=== PATIENT | female | born 1965 | race Caucasian/White ===

== ENCOUNTER 2017-01-27 19:30 | Emergency (ER) | payer OTHER ==
[~2017-01-27] VITALS: Ht 167.6 cm; Wt 86.0 kg
[2017-01-27 19:32] VITALS: BP 158/92; PULSE 69; RESP 16; TEMP 98.3; O2SAT 100
--- NOTE | 2017-01-27 19:57 | PD ---
HPI Chief Complaint: facial droop Time Seen by Provider: 19:42 Travel History International Travel<30 days: No Contact w/Intl Traveler<30days: No History of Present Illness HPI 51 y/o female presents with developing facial tingling and drooping to her mouth since 10 AM this morning. She went to an urgent care and they sent her here for further evaluation. She denies any symptoms in her arms or legs. She states she's also having difficulty closing her right eye. Entire right side of her face is the area that is affected. She denies prior history of this. Quality is tingly. PFSH Past Medical History Thyroid Disease: Yes Past Surgical History Hysterectomy: Yes (still has her ovaries) Social History Tobacco Use: No Allergies-Medications (Allergen,Severity, Reaction): Coded Allergies: No Known Allergies (Unverified , 01/27/17) Reported Meds & Prescriptions Reported Meds & Active Scripts Active Valtrex (Valacyclovir HCl) 1 Gm Tab 1,000 Mg PO TID 7 Days Prednisone 50 Mg Tab 50 Mg PO DAILY 7 Days Review of Systems Except as stated in HPI: all other systems reviewed are Neg Physical Exam Narrative GENERAL: Well-nourished, well-developed patient. SKIN: Warm and dry. HEAD: atraumatic. EYES: No injection or drainage. ENT: No nasal drainage noted. bilateral TM clear NECK: Supple, trachea midline. CARDIOVASCULAR: Regular rate and rhythm RESPIRATORY: Breath sounds equal bilaterally. No accessory muscle use. GASTROINTESTINAL: Abdomen soft, non-tender, nondistended. EXTREMITIES: No edema. NEUROLOGICAL: Awake and alert. Motor and sensory grossly within normal limits to extremities. No pronator drift, equal grasp bilaterally, 5 out of 5 in all 4 extremities, patient with right sided facial droop and unable to fully close her right eye or wrinkle forehead. Symptoms are isolated to entire right side of the face Data Data Last Documented VS Vital Signs Date Time Temp Pulse Resp B/P Pulse Ox O2 Delivery O2 Flow Rate FiO2 01/27/17 20:15 78 16 134/72 01/27/17 20:12 98.[address] Brain W/O Iv Contrast(Rout) (01/27/17 ) MDM Medical Decision Making Medical Screen Exam Complete: Yes Emergency Medical Condition: Yes Interpretation(s) Last [address] 01/27/17 0000 Signed Impressions: Service Date/Time: Friday, January 27, 2017 19:56 - CONCLUSION: Normal examination. Gm Red MD Differential Diagnosis Calabrese's palsy, labyrinthitis, tumor..... Narrative Course will check ct brain and reeval, exam classic for bells palsy CT brain no acute, will provide with prednisone, Valtrex and Lacri-Lube and artificial tear prescriptions,Patient denies any new complaints, all questions answered. Patient knows that follow up is incumbent on them and to return to the emergency room immediately if new or worsening symptoms develop. Patient given strict return precautions, vitals reviewed and are normal, agrees to further workup as an outpatient. Diagnosis Primary Impression: Calabrese palsy Referrals: Primary Care Physician call for appointment monday Additional Instructions: return as needed, use OTC moisturizing eyedrops as directed, take medications as directed Med/Other Pt SpecificInfo: Prescription(s) given (scripts also given for [id number] Lacri-Lube and artificial tears for day and night use) Scripts Valacyclovir (Valtrex)1 Gm Tab1,000 Mg PO TID 7 Days Ref 0 Prov:Samara Munson MD 01/27/17 Prednisone 50 Mg Tab50 Mg PO DAILY 7 Days Ref 0 Prov:Samara Munson MD 01/27/17 Disposition: 01 DISCHARGE HOME Condition: Stable Samara Munson MD Jan 27, 2017 19:57
[2017-01-27] MEDS ORDERED: VALT1TAB PO (20:00)
[2017-01-27] MEDS ORDERED: PRED50 PO (20:00)
[2017-01-27 20:12] VITALS: BP 138/81; PULSE 72; RESP 22; TEMP 98.5; O2SAT 99
[2017-01-27 20:15] VITALS: BP 134/72; PULSE 78; RESP 16
--- NOTE | 2017-01-27 20:30 | RADRPT ---
EXAM DATE/TIME: 01/27/2017 19:56 [facility] COMPARISON: No previous studies available for comparison. INDICATIONS : Dizziness with elevated blood pressure. RADIATION DOSE: 56.35 CTDIvol (mGy) MEDICAL HISTORY : Hypertension. SURGICAL HISTORY : None. ENCOUNTER: Initial ACUITY: 1 day PAIN SCALE: 2/10 LOCATION: cranial TECHNIQUE: Multiple contiguous axial images were obtained of the head. Using automated exposure control and adj ustment of the mA and/or kV according to patient size, radiation dose was kept as low as reasonably a chievable to obtain optimal diagnostic quality images. FINDINGS: CEREBRUM: The ventricles are normal for age. No evidence of midline shift, mass lesion, hemorrhage or acute in farction. No extra-axial fluid collections are seen. POSTERIOR FOSSA: The cerebellum and brainstem are intact. The 4th ventricle is midline. The cerebellopontine angle i s unremarkable. EXTRACRANIAL: The visualized portion of the orbits is intact. SKULL: The calvaria is intact. No evidence of skull fracture. CONCLUSION: Normal examination. Gm Red MD on January 27, 2017 at 20:26 Board Certified Radiologist. This report was verified electronically.
[2017-01-27 20:40] VITALS: BP 119/52
== END 2017-01-27 20:43 | disposition home or self-care (01) ==
LOC: NEPC 19:30
DX: G51.0 Bell's palsy (principal)
CPT/HCPCS: 70450; 99284